=== PATIENT | male | born 1955 | race Caucasian/White ===

== ENCOUNTER 2018-04-05 10:09 | Outpatient (CLI) | payer OTHER ==
--- NOTE | 2018-04-05 12:12 | RAD ---
CERVICAL SPINE THREE VIEWS: History: 62-year-old male with history of neck pain as well as right shoulder and arm pain following a neck in [place] in the 1980s and neck surgery. FINDINGS: Anterior cervical fusion changes at C3 to C7 with anterior metal plate and screws. C7-T1 and T1 are partially obscured on the lateral view and portions of the C1 and the odontoid are p artially obscured on the AP open mouth view. No prevertebral soft tissue swelling. No malalignment. T here is some facet arthrosis changes. IMPRESSION: Anterior cervical fusion changes of C3 through C7. Some generalized facet arthrosis. No significant m alalignment. POS: [facility]
== END 2018-04-05 10:10 | disposition home or self-care (01) ==
LOC: TBSIIMAG 10:09
PROVIDERS: ATTEND Neurological Surgery
DX: M54.2 Cervicalgia (principal); M47.892 Other spondylosis, cervical region; Z98.1 Arthrodesis status
CPT/HCPCS: 72040